=== PATIENT | female | born 1970 | race Two or more races ===

== ENCOUNTER 2024-08-04 13:29 | Emergency (ER) | payer OTHER ==
[~2024-08-04] VITALS: Ht 167.6 cm; Wt 83.0 kg
[2024-08-04] MEDS ORDERED: KETOROLAC TROMETHAMINE 30 MG VIAL IM STA (16:27)
== END 2024-08-04 17:46 | disposition home or self-care (01) ==
LOC: ER 13:31
DX: M25.561 Pain in right knee (principal); W18.39XA Other fall on same level, initial encounter; Y93.89 Activity, other specified; Y92.89 Other specified places as the place of occurrence of the external cause; Z88.2 Allergy status to sulfonamides; S69.81XA Other specified injuries of right wrist, hand and finger(s), initial encounter; M25.531 Pain in right wrist
CPT/HCPCS: 73110; 73560; 96372; 99283; J1885